=== PATIENT | female | born 1985 | race Caucasian/White ===

== ENCOUNTER 2020-05-13 07:12 | Outpatient (REF) | payer OTHER, SELFPAY | END 2020-05-13 07:13 | disposition home or self-care (01) | LOC: HO.WFDLDS 07:12 | PROVIDERS: PCP Pediatrics; Visit Provider Internal Medicine | DX: Z20.822 Contact with and (suspected) exposure to COVID-19 (principal) | CPT/HCPCS: 36415; C9803; U0003 ==

== ENCOUNTER → 2020-08-17 11:30 | Outpatient (BNVA) | payer OTHER, SELFPAY | PROVIDERS: PCP Pediatrics; Visit Provider Physician Assistant | DX: S60.471A Other superficial bite of left index finger, initial encounter (principal); S60.411A Abrasion of left index finger, initial encounter; W50.3XXA Accidental bite by another person, initial encounter | CPT/HCPCS: 99203 ==

== ENCOUNTER → 2020-08-20 08:10 | Outpatient (BNVA) | payer OTHER, SELFPAY | PROVIDERS: PCP Pediatrics; Visit Provider Internal Medicine | DX: S67.191A Crushing injury of left index finger, initial encounter (principal); S61.351A Open bite of left index finger with damage to nail, initial encounter; W50.3XXA Accidental bite by another person, initial encounter | CPT/HCPCS: 99213 ==